=== PATIENT | female | born 1980 ===

== ENCOUNTER 2017-02-01 08:43 | Day surgery (SDC) | payer OTHER ==
--- NOTE | 2017-01-31 09:43 | Pre-Procedure Note/Attestation ---
Pre-Procedure Note/Attestation Complete Prior to Procedure Planned Procedure: left Procedure Narrative: Left knee scope, medial meniscectomy Indications for Procedure Pre-Operative Diagnosis: Left knee medial meniscus tear Attestation I attest that I discussed the nature of the procedure; its benefits; risks and complications; and alternatives (and the risks and benefits of such alternatives ), prior to the procedure, with the patient (or the patient's legal client account representative). I attest that, if there was a reasonable possibility of needing a blood transfusion, the patient (or the patient's legal client account representative) was given the [facility] standardized written summary, pursuant to the [place] Blood Safety Act ([place] Health and Safety Code # 1645, as amended). I attest that I re-evaluated the patient just prior to the surgery and that there has been no change in the patient's H&P, except as documented below: NONE GERRI PORTILLO Jan 31, 2017 09:43
[2017-02-01] VITALS (17 sets, daily range): BP systolic 105–128; BP diastolic 65–82
[~2017-02-01] VITALS: Ht 165.1 cm; Wt 59.0 kg
--- NOTE | 2017-02-01 07:38 | Anethesia Preoperative Eval ---
Anesthesia Pre-op PMH/ROS General Date of Evaluation: Feb 01, 2017 Anesthesiologist: Cody ASA Score: ASA 2 Mallampati Score Class I : Soft palate, uvula, fauces, pillars visible Class II: Soft palate, uvula, fauces visible Class III: Soft palate, base of uvula visible Class IV: Only hard plate visible Mallampati Classification: Class II Surgeon: Teddy Diagnosis: Left knee pain Surgical Procedure: Left knee arthroscopy Anesthesia History: none Family History: no anesthesia problems Allergies: Coded Allergies: POLLEN EXTRACTS (Verified Allergy, Intermediate, 01/31/17) sneezing, watery eyes Medications: see eMAR Past Medical History Cardiovascular: Denies: CAD, HTN, SD, arrhythmia, other, valve dz Pulmonary: Reports: asthma, Denies: COPD, GURDEEP, other Gastrointestinal/Genitourinary: Denies: CRI, ESRD, GERD, other Neurologic/Psychiatric: Denies: CVA, TIA, dementia, depression/anxiety, other Endocrine: Denies: DM, hypothyroidism, other, steroids HEENT: Denies: SOKAOGON (L), SOKAOGON (R), cataract (L), cataract (R), glaucoma, other Hematology/Immune: Denies: DVT, anemia, bleeding disorder, other Musculoskeletal/Integumentary: Denies: DDD, DJD, OA, RA, edema, other PSxH Narrative: lap appy Anesthesia Pre-op Phys. Exam Physician Exam see chart Constitutional: NAD Cardiovascular: RRR Respiratory: CTA Airway Exam Mallampati Score: Class II MO: full ROM: full Teeth: intact Anesthesia Pre-op A/P Labs see chart Studies Pre-op Studies: EKG - sr Risk Assessment & Plan Assessment: ASA II Plan: GA Status Change Before Surgery: No Pre-Antibiotics Drug: Ancef 1g Given Within 1 Hr of Incision: Yes BLESSING BOYCE M.D. Feb 01, 2017 07:38
[~2017-02-01 08:43] MED LIST: NKM; ceFAZolin 1gm in D5W 55ml IVP ONE; celeBREX 200mg Cap **SURGERY PATIENTS ONLY ORAL ONE; oxyCONTIN 20mg tab ORAL ONE
[2017-02-01] MEDS ORDERED: Ropivacaine 5mg/ml Vial 20ml INJ ONE (09:18)
--- NOTE | 2017-02-01 09:44 | Immediate Post-Op Evaluation ---
Immediate Post-Op Evalulation Immediate Post-Op Evalulation Procedure: Left knee arthroscopy Date of Evaluation: Feb 01, 2017 Time of Evaluation: 11:17 IV Fluids: 600 Blood Products: 0 Estimated Blood Loss: 5 Urinary Output: 0 Blood Pressure Systolic: 118 Blood Pressure Diastolic: 75 Pulse Rate: 74 Respiratory Rate: 15 O2 Sat by Pulse Oximetry: 100 Temperature (Fahrenheit): 97.7 Pain Score (1-10): 0 Nausea: No Vomiting: No Complications 0 Patient Status: awake, reacts, patent, none Hydration Status: adequate Drug: Ancef 1g Given Within 1 Hr of Incision: Yes Time Given: 10:15 BLESSING BOYCE M.D. Feb 01, 2017 09:44
[2017-02-01] MEDS ORDERED: fentaNYL 100 mcg/2 mL IV PRN (09:45)
[2017-02-01] MEDS ORDERED: Metoclopramide 10mg/2ml Inj IVP PRN (09:45)
[2017-02-01] MEDS ORDERED: Midazolam 2mg/2ml Inj IVP PRN (09:45)
[2017-02-01] MEDS ORDERED: DiphenhydrAMINE 50mg/ml Inj IVP PRN (09:45)
[2017-02-01] MEDS ORDERED: LORazepam Inj 2mg/ml 1ml IV PRN (09:45)
[2017-02-01] MEDS ORDERED: Hydromorphone 0.5mg/0.5ml inj IVP PRN (09:45)
[2017-02-01] MEDS ORDERED: LR 1000ml 1,000 ML IVLG SCH (09:45)
--- NOTE | 2017-02-01 09:45 | 48 Hour Post Anesthesia Eval ---
Post Anesthesia Evaluation Procedure: Left knee arthroscopy Date of Evaluation: Feb 01, 2017 Time of Evaluation: 12:50 Blood Pressure Systolic: 115 0: 73 Pulse Rate: 55 Respiratory Rate: 17 O2 Sat by Pulse Oximetry: 100 Airway: patent Nausea: No Vomiting: No Pain Intensity: 0 Hydration Status: adequate Cardiopulmonary Status: at baseline Mental Status/LOC: patient returned to baseline Post-Anesthesia Complications: 0 Follow-up care needed: ready to discharge BLESSING BOYCE M.D. Feb 01, 2017 09:45
[2017-02-01] MEDS ORDERED: Ketamine 500mg Inj ONE (10:00)
[2017-02-01] MEDS ORDERED: fentaNYL 100 mcg/2 mL IV ONE (10:00)
[2017-02-01] MEDS ORDERED: LR 1000ml ONE (10:00)
[2017-02-01] MEDS ORDERED: Metoclopramide 10mg/2ml Inj ONE ×2 (10:00→13:39)
[2017-02-01] MEDS ORDERED: Propofol 10mg/ml 20ml IV ONE (10:00)
[2017-02-01] MEDS ORDERED: Lidocaine 1% MPF 10mg/ml 5ml ONE (10:00)
[2017-02-01] MEDS ORDERED: Midazolam 2mg/2ml Inj ONE (10:00)
[2017-02-01] MEDS ORDERED: Dexamethasone 4mg/ml vial ONE (10:00)
[2017-02-01] MEDS ORDERED: NS Irrig 4000ml IRRIG ONE (10:10)
--- NOTE | 2017-02-01 11:05 | Brief Operative Note ---
Immediate Post Operative Note Operative Note Chief Complaint: left knee pain Pre-op Diagnosis: left knee medial meniscus tear Procedure: left knee scope, Medial meniscectomy Post-op Diagnosis: same as pre-op Findings: consistent w/pre-op dx studies Surgeon: md edmond Dry Cell Sealer: landry hardwick Anesthesiologist: md vito Anesthesia: general Specimen: none Complications: none Condition: stable Estimated Blood Loss: minimal Drains: none Implant(s) used?: No ARMAND HARDWICK Feb 01, 2017 11:05
[2017-02-01] MEDS ORDERED: Tylenol #3 tab (300mg/30mg) ORAL PRN (14:01)
[2017-02-01] MEDS ORDERED: Norco 5mg/325mg tab ORAL PRN (14:01)
[2017-02-01] MEDS ORDERED: HYDROmorphone 1mg/ml Carpuject SUBQ PRN (14:01)
[2017-02-01] MEDS ORDERED: D5 1/2NS 1,000 ML IV SCH (14:01)
--- NOTE | 2017-02-01 18:00 | Operative Note - Dictated ---
DATE OF OPERATION: 02/01/2017 PREOPERATIVE DIAGNOSIS: Left knee posterior horn medial meniscus tear. POSTOPERATIVE DIAGNOSES: 1. Left knee thickened medial plica shelf rubbing at the medial femoral condyle. 2. Left knee horizontal tear of the posterior horn of the medial meniscus involving 30% medial meniscus. PROCEDURES: 1. Left knee arthroscopy and extensive intra-articular shaving. 2. Left knee resection of thickened medial plica shelf. 3. Left knee partial medial meniscectomy involving 30% of posterior horn and body of the medial meniscus. SURGEON: Monty Espinal M.D. POWER HOUSE CONTROL ROOM OPERATOR: Loren Ag PA-C. ANESTHESIOLOGIST: Lisa Ross M.D. ANESTHESIA: LMA anesthesia. EBL: Less than 20 mL. TOURNIQUET TIME: 25 minutes. COMPLICATIONS: None. SURGICAL INDICATION: Patient is a 36-year-old female who sustained the above injury to her Knee. The patient was treated non-operative initially, but this did not alleviate the patients symptoms. Therefore, after discussing all non-surgical and surgical options, and discussing all foreseeable risk and benefits of surgery, the patient opted for surgical treatment as described above. PATIENT POSITIONING: Patient was brought to the operating room table and placed supine. All pressure points were well padded. General Anesthesia was induced and a well padded tourniquet was placed on the thigh. The lateral post was placed and positioned to allow for opening of the medial compartment of the knee without placing pressure over the fibular head. Patients entire leg was prepped and draped in the usual sterile fashion. Time out was performed and preop abx was given and after exsanguinating the lower extremity, the tourniquet was inflated to 275 mm of mercury. EXAMINATION OF THE KNEE UNDER ANESTHESIA: Before prepping and draping the knee and while the patient was relaxed under general anesthesia, the knee was examined for ROM, and anterior and posterior, medial and lateral, posterolateral, and posteromedial instability. Pivot shift testing was performed. There was no evidence of loss of motion or instability and the pivot shift testing was negative. PORTAL PLACEMENT: The lateral portal was placed with the knee flexed to 90 degrees at the level of inferior border of the patella in line with the lateral border of the patella. A cm skin incision was made with an eleven blade, and using a blunt obturator, the capsule was gently penetrated. Sterile saline solution was then infused inside the knee with the aid of a pump set at 35 mm mercury pressure. Under direct visualization, placement of the medial portal was preliminary judged using a spinal needle, and it was subsequently established using the same technique as the lateral portal. Care was given not to injure the cutaneous branches of the medial Saphenous nerve or the subcutaneous veins. DIAGNOSTIC ARTHROSCOPY: The suprapatellar patellar pouch was visualized. There was no evidence of scar tissue or loose fragments. The medial and lateral patellar facets and trochlear groove articular cartilage was visualized. These structures were intact and were devoid of any articular cartilage damage. The medial plica shelf and the corresponding medial femoral condyle articular cartilage were visualized. There was a thickened medial plica shelf. There was rubbing at the medial femoral condyle with a kissing lesion. The lateral gutter and the posterolateral corner of the knee were visualized. There were no loose bodies, and the popliteus tendon and other structures of the posterolateral corner of the knee were intact intra-articularly. At this point, the knee was placed in the figure of four position and the lateral compartment was entered. The lateral femoral condyle, lateral tibial plateau, and the anterior, body, and the posterior horn of the lateral meniscus were visualized and probed. The articular surfaces were intact and devoid of articular cartilage damage. The lateral meniscus was completely intact both on its undersurface and on the top. The knee was then placed at 90 degree and the ACL and PCL were visualized and probed. The ACL was completely intact on visualization and probing, and it had excellent tension. The PCL was completely intact on visualization and probing and it had excellent tension. The medial compartment was then entered and the medial femoral condyle, medial tibial plateau, and the anterior, body, and the posterior horn of the medial meniscus were visualized and probed. The articular surfaces were intact and devoid of articular cartilage damage. There is a horizontal tear of the posterior horn of the medial meniscus at the junction of posterior horn and body of the medial meniscus. This was unstable on probing. The medial gutter was visualized. There was no evidence of defect or loose fragments. The scope was then brought back to the patella femoral compartment. OPERATIVE ARTHROSCOPY: At this point, all loose debris and fragments were removed with the use of suction motorized shaver. Specific attention was given to assure all visible loose fragments were irrigated out of the knee joint with pump inflow and cannula outflow system. Attention was given to the thickened medial plica shelf. Using combination of estefanía and baskets, the thickened portion of synovectomy was removed and synovectomy was performed in this fashion. Chondroplasty of the " Kissing lesion" of the medial femoral condyle was performed to create a smooth surface. The knee was placed through ROM and there was no contact between the thickened plica shelf and the medial femoral condyle. At this point, attention was given to the lateral meniscus. Using combination of baskets and estefanía, the torn portion of the lateral meniscus was removed. Attention was given to remove all displaced and unstable portion of the lateral meniscus while maintaining as much of the functional portion of the meniscus as possible. Care was given to the area of cartilage damage in the lateral compartment. The frayed and loose fragments of articular cartilage were debrided using a motorized shaver. Suction was used to pull in the loose fragments and flaps of the cartilage and to minimize damage to the intact and well attached portion of the cartilage. This allowed for smooth surfaces for the articular cartilage. At this point, attention was given to the medial meniscus. Using combination of baskets and estefanía, the torn portion of the medial meniscus was removed. Attention was given to remove all displaced and unstable portion of the medial meniscus while maintaining as much of the functional portion of the meniscus as possible. Approximately, 30% of the posterior horn and body of the medial meniscus was removed in this fashion. The transition between the meniscectomy portion and intact portion of the meniscus was smoothed out with combination of small baskets and estefanía. Excellent transition zone was obtained in this fashion. CONDITION AT DISCHARGE FROM OPERATING ROOM: The knee was irrigated with copious amount of normal saline at the end of the procedure. The scope was removed and the water was drained. The skin edges were re-approximated and sterile dressing was applied. All lap count and instrument counts were correct. Patient tolerated the procedure well without complications and was taken to the recovery room in stable conditions. Monty Espinal M.D. DR: AMANAD JOB#: [id number] CC:
== END 2017-02-01 16:50 | disposition home or self-care (01) ==
LOC: SUR 08:43
DX: M23.222 Derangement of posterior horn of medial meniscus due to old tear or injury, left knee (principal); J45.909 Unspecified asthma, uncomplicated; Z90.49 Acquired absence of other specified parts of digestive tract
CPT/HCPCS: 29881; 81025; J0690; J1100; J2250; J2405; J2704; J2765; J2795; J3010; J3490; J7120; 94003; 94150